=== PATIENT | female | born 1970 | race Caucasian/White ===

== ENCOUNTER 2020-10-06 14:19 | Emergency (ER) | payer OTHER, SELFPAY ==
[~2020-10-06] VITALS: Ht 152.4 cm; Wt 63.5 kg
[2020-10-06 14:22] VITALS: BP 118/83; Ht 152.4 cm; Wt 63.5 kg
== END 2020-10-06 16:05 | disposition home or self-care (01) ==
LOC: ED 14:19
DX: U07.1 COVID-19 (principal); J12.89 Other viral pneumonia
CPT/HCPCS: U0003